=== PATIENT | male | born 1985 | race Two or more races ===

== ENCOUNTER 2018-04-22 10:35 | Emergency (ER) | payer MEDICAID ==
[~2018-04-22] VITALS: Ht 167.6 cm; Wt 66.7 kg
[~2018-04-22 10:35] MED LIST: IBUPROFEN600 MG PO; NORCO 5-325 TA1 EACH PO; ROBAXIN-750750 MG PO
[2018-04-22] MEDS ORDERED: TERBINAFINE HC250 MG PO (10:49)
[2018-04-22] MEDS ORDERED: AMITRIPTYLINE100 MG ORAL (10:49)
[2018-04-22] MEDS ORDERED: JANUVIA25 MG ORAL (10:49)
[2018-04-22] MEDS ORDERED: AMOXICILLIN500 MG ORAL (11:19)
[2018-04-22] MEDS ORDERED: CORTISPORIN EAR10 ML OTIC (11:19)
[2018-04-22 11:25] VITALS: BP 121/81
--- NOTE | 2018-04-22 11:26 | NUR ---
ED Nurse Note: pt. was examed, treated and cleared for D/C home by ER provider. PT. received D/C instructions with prescriptions, verbalized understanding and left ER with steady gait and all personal belongings , ID bend removed.
[2018-04-22 11:27] VITALS: BP 121/81
--- NOTE | 2018-04-22 11:42 | Emergency Room Report ---
History of Present Illness General Chief Complaint: Earache Source: Patient Present Illness HPI Patient presents with complaints of pain to the left ear He felt some increased pressure discomfort 2 weeks ago he had some swelling to the lower parotid region which has improved significantly Denies any neck pain or photophobia denies any fevers He did have some irritation to the canal as well Denies any fall or trauma He did report small tinge of blood from the left ear earlier however does report manipulation of the area with earplugs and also a Q-tip Allergies: Coded Allergies: No Known Allergies (Unverified , 04/22/18) Patient History Past Medical History: see triage record Pertinent Family History: none Reviewed Nursing Documentation: PMH: Agreed; PSxH: Agreed Nursing Documentation-PMH Past Medical History: No History, Except For Review of Systems All Other Systems: negative except mentioned in HPI Physical Exam Vital Signs Date Time Temp Pulse Resp B/P (MAP) Pulse Ox O2 Delivery O2 Flow Rate FiO2 04/22/18 10:44 98.2 99 16 120/82 97 Room Air Sp02 EP Interpretation: reviewed, normal General Appearance: well appearing, no apparent distress Head: normocephalic, atraumatic Eyes: bilateral eye PERRL, bilateral eye EOMI ENT: other - Canal on the left side is mildly irritated tympanic membrane is bulging, the parotid gland in the left side appears mildly irritated as well Neck: supple Respiratory: lungs clear Cardiovascular #1: regular rate, rhythm, no edema Gastrointestinal: non tender, soft Musculoskeletal: normal inspection Neurologic: alert, oriented x3 Skin: other - As above Lymphatic: no adenopathy Medical Decision Making Diagnostic Impression: Primary Impression: otitis media Additional Impression: otitis externa ER Course Patient's exam is consistent with otitis media and externa He is placed on medications appropriately And requires close outpatient follow-up Last Vital Signs Date Time Temp Pulse Resp B/P (MAP) Pulse Ox O2 Delivery O2 Flow Rate FiO2 04/22/18 11:27 98.2 94 16 121/81 97 Room Air Status: unchanged Disposition: HOME, SELF-CARE Condition: Stable Scripts Amoxicillin* (AMOXIL*) 500 Mg Capsule 500 MG ORAL THREE TIMES A DAY, #21 CAP Prov: Nazario Cassidy DO 04/22/18 Neomycin/Polymyxin B Sulf/Hc* (CORTISPORIN EAR SOLUTION*) 10 Ml Solution 2 DROP OTIC FOUR TIMES A DAY for 5 Days, #1 EA Instill in affected ear as directed for 7 days Prov: Nazario Cassidy DO 04/22/18 Referrals: NON PHYSICIAN (PCP) Patient Instructions: Otitis Externa, [id number], Otitis Media, Adult Additional Instructions: Patient is provided with the discharge instructions notified to follow up with primary doctor in the next 2-3 days otherwise return to the er with any worsening symptoms. Please note that this report is being documented using [employer] technology. This can lead to erroneous entry secondary to incorrect interpretation by the dictating instrument. Nazario Cassidy DO Apr 22, 2018 11:42
== END 2018-04-22 11:32 | disposition home or self-care (01) ==
LOC: EMR 11:00
DX: H66.92 Otitis media, unspecified, left ear (principal); H60.92 Unspecified otitis externa, left ear
CPT/HCPCS: 99283

== ENCOUNTER 2018-06-11 09:57 | Emergency (ER) | payer MEDICAID ==
[~2018-06-11] VITALS: Ht 167.6 cm; Wt 70.3 kg
[~2018-06-11 09:57] MED LIST changes: +AMITRIPTYLINE100 MG ORAL; +AMOXICILLIN500 MG ORAL; +CORTISPORIN EAR10 ML OTIC; +JANUVIA25 MG ORAL; +TERBINAFINE HC250 MG PO
[2018-06-11 10:07] VITALS: BP 106/72
[2018-06-11] MEDS ORDERED: GENVOYA TABLET1 EACH PO (10:11)
--- NOTE | 2018-06-11 10:36 | Emergency Room Report ---
History of Present Illness General Chief Complaint: Flu Like Symptoms Source: Patient Present Illness HPI Patient presents with complaints of sinus pressure and nasal congestion ongoing for the past 10 days Denies any sore throat he has some mild pain to the forehead region Patient also has a mild dry cough denies any chest pain or shortness of breath denies any vomiting or diarrhea Denies any abdominal pain denies any recent travel or pleurisy Allergies: Coded Allergies: No Known Allergies (Unverified , 06/11/18) Patient History Past Medical History: see triage record Pertinent Family History: none Reviewed Nursing Documentation: PMH: Agreed; PSxH: Agreed Nursing Documentation-PM Past Medical History: No History, Except For Review of Systems All Other Systems: negative except mentioned in HPI Physical Exam Vital Signs Date Time Temp Pulse Resp B/P (MAP) Pulse Ox O2 Delivery O2 Flow Rate FiO2 06/11/18 10:07 97.9 16 106/72 100 Room Air 06/11/18 10:07 81 Sp02 EP Interpretation: reviewed, normal General Appearance: well appearing, no apparent distress Head: normocephalic, atraumatic Eyes: bilateral eye PERRL, bilateral eye EOMI ENT: hearing grossly normal, normal pharynx, TMs + canals normal, uvula midline , other - Some nasal congestion Neck: full range of motion, supple, no meningismus, no bony tend Respiratory: lungs clear, normal breath sounds, no rhonchi, no respiratory distress, no retraction, no accessory muscle use Cardiovascular #1: normal peripheral pulses, regular rate, rhythm, no edema, no gallop, no JVD, no murmur Gastrointestinal: normal bowel sounds, non tender, soft, no mass, no organomegaly, non-distended, no guarding, no hernia, no pulsatile mass, no rebound Genitourinary: no CVA tenderness Musculoskeletal: normal inspection Neurologic: oriented x3, responsive, billing checker III-XII nml as tested, motor strength/ tone normal, sensory intact Psychiatric: mood/affect normal Skin: normal color, no rash, warm/dry, palpation normal Lymphatic: normal inspection, no adenopathy Medical Decision Making Diagnostic Impression: Primary Impression: Sinusitis Additional Impression: URI (upper respiratory infection) ER Course Differentials including but not limited to sinusitis, pneumonia, URI considered patient has findings and clinical history consistent with Sinusitis does not meet criteria for antibiotics at this time We will have initial conservative outpatient trial And will return with any changes Last Vital Signs Date Time Temp Pulse Resp B/P (MAP) Pulse Ox O2 Delivery O2 Flow Rate FiO2 06/11/18 10:13 81 16 Room Air 06/11/18 10:07 97.9 106/72 100 Status: unchanged Disposition: HOME, SELF-CARE Condition: Stable Additional Instructions: Patient is provided with the discharge instructions notified to follow up with primary doctor in the next 2-3 days otherwise return to the er with any worsening symptoms. Please note that this report is being documented using [employer] technology. This can lead to erroneous entry secondary to incorrect interpretation by the dictating technology Nazario Cassidy DO Jun 11, 2018 10:36
[2018-06-11] MEDS ORDERED: PSEUDOEPHEDRINE60 MG PO (10:37)
[2018-06-11 10:55] VITALS: BP 110/80
--- NOTE | 2018-06-11 10:55 | NUR ---
ED Nurse Note: Pt was seen due to coughing and flu like symptoms. Pt cleared by Health Care Provider for discharge. DC instructions/prescription was given and explained to the pt and verbalized understanding of teachings. All medical devices such as ID band removed. Pt is AAO x4, ambulatory and left with all personal belongings.
== END 2018-06-11 10:55 | disposition home or self-care (01) ==
LOC: EMR 10:48
DX: J32.9 Chronic sinusitis, unspecified (principal); J06.9 Acute upper respiratory infection, unspecified
CPT/HCPCS: 99281

== ENCOUNTER 2019-03-26 18:39 | Emergency (ER) | payer MEDICAID ==
[~2019-03-26] VITALS: Ht 167.6 cm; Wt 66.7 kg
[~2019-03-26 18:39] MED LIST changes: +GENVOYA TABLET1 EACH PO; +PSEUDOEPHEDRINE60 MG PO
[2019-03-26 19:06] VITALS: BP 118/74
[2019-03-26] MEDS ORDERED: RANITIDINE HCL150 MG ORAL (19:30)
[2019-03-26] MEDS ORDERED: ONDANSETRON ODT4 MG BC (19:30)
[2019-03-26 19:36] VITALS: BP 118/74
--- NOTE | 2019-03-26 22:02 | Emergency Room Report ---
History of Present Illness General Chief Complaint: Nausea, Vomiting, and Diarrhea Source: Patient Present Illness HPI 33-year-old male presents ED for evaluation. Complaining of nausea and vomiting. States he is had 3 episodes of vomiting the last few hours. Started shortly after he ate lunch. Denies any nausea or vomiting at this time. Denies any abdominal pain. Denies any diarrhea. Could be a reaction to a new medication he was prescribed for alcohol withdrawal. Does not know the name of the medication. No other aggravating relieving factors. Denies any other associated symptoms Allergies: Uncoded Allergies: AZITHROMIACIN (Allergy, Unknown, 03/26/19) Patient History Past Medical History: none Past Surgical History: none Pertinent Family History: none Social History: Denies: smoking, alcohol use, drug use Immunizations: UTD Reviewed Nursing Documentation: PMH: Agreed; PSxH: Agreed Nursing Documentation-PMH Past Medical History: No History, Except For Review of Systems All Other Systems: negative except mentioned in HPI Physical Exam Vital Signs Date Time Temp Pulse Resp B/P (MAP) Pulse Ox O2 Delivery O2 Flow Rate FiO2 03/26/19 18:58 98.4 89 20 118/74 (89) 97 Room Air Sp02 EP Interpretation: reviewed, normal General Appearance: no apparent distress, alert, GCS 15, non-toxic Head: normocephalic Eyes: bilateral eye normal inspection, bilateral eye PERRL ENT: normal ENT inspection Neck: normal inspection Respiratory: chest non-tender, lungs clear, normal breath sounds, speaking full sentences Cardiovascular #1: regular rate, rhythm, no edema Gastrointestinal: normal bowel sounds, non tender, soft, non-distended, no guarding, no rebound Rectal: deferred Genitourinary: no CVA tenderness Musculoskeletal: normal inspection Neurologic: alert, motor strength/tone normal, oriented x3, sensory intact, responsive, speech normal Psychiatric: normal inspection Skin: no rash Lymphatic: normal inspection Medical Decision Making Diagnostic Impression: Primary Impression: Gastritis Qualified Codes: K29.00 - Acute gastritis without bleeding ER Course Hospital Course 33 yo M presents to ED with vomiting. differential diagnosis: gastritis, SBO, cholecystits Clinical course Patient placed on stretcher. 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 After initial history physical exam reveals male in no acute distress. Abdomen soft. No guarding or rebound. Vital stable. discussed findings with patient. I do not believe patient would require labs or IV access. Patient agrees. Given ODT Zofran and Pepcid here. Safe for discharge for close outpatient follow-up. States he has a PMD I feel this is a highly complex case requiring extensive working including EKG/ Rhythm strip, Xray/CT/US, Blood/urine lab work, repeat exams while in ED, and administration of strong opiates/narcotics for pain control, admission to hospital or close patient follow up. Diagnosis - gastritis Stable and discharged to home with prescriptions for Zantac, zofran. Followup with PMD. Return to ED if symptoms recur or worsen Last Vital Signs Date Time Temp Pulse Resp B/P (MAP) Pulse Ox O2 Delivery O2 Flow Rate FiO2 03/26/19 19:36 98.4 89 20 118/74 97 Room Air Status: improved Disposition: HOME, SELF-CARE Condition: Stable Scripts Ranitidine Hcl* (ZANTAC*) 150 Mg Tablet 150 MG ORAL TWICE A DAY, #30 TAB Prov: Robert Remy MD 03/26/19 Ondansetron Odt* (ZOFRAN ODT*) 4 Mg Tab.rapdis 4 MG BC EVERY 6 HOURS PRN for Nausea & Vomiting, #10 TAB 0 Refills Prov: Robert Remy MD 03/26/19 Referrals: NON PHYSICIAN (PCP) Raul Gar[facility] Patient Instructions: Gastritis, Adult, [id number] Robert Remy MD Mar 26, 2019 22:02
== END 2019-03-26 19:36 | disposition home or self-care (01) ==
LOC: EMR 19:24
DX: K29.00 Acute gastritis without bleeding (principal); Z88.8 Allergy status to other drugs, medicaments and biological substances
CPT/HCPCS: 99283

== ENCOUNTER 2019-04-27 14:50 | Emergency (ER) | payer MEDICAID ==
[~2019-04-27] VITALS: Ht 167.6 cm; Wt 74.8 kg
[~2019-04-27 14:50] MED LIST changes: +ONDANSETRON ODT4 MG BC; +RANITIDINE HCL150 MG ORAL
[2019-04-27 15:22] VITALS: BP 118/83
[2019-04-27 15:27] VITALS: BP 118/83
--- NOTE | 2019-04-27 15:27 | NUR ---
ED Nurse Note: Patient arrived to ED by car from home c/o possible allergic reaction. Patient ate a burger and noticed the right side of his face started swelling. No shortness of breath, nausea, vomiting, or diarrhea. Patient AxO x 4, VSS. No s/s of acute distress. Bed in lowest position.
[2019-04-27] MEDS ORDERED: Ketorolac 30mg Inj IM ONE (15:45)
[2019-04-27] MEDS ORDERED: Unasyn 3gm Inj IM ONE (15:45)
[2019-04-27] MEDS ORDERED: Clindamycin 150mg cap ORAL SCH (15:45)
[2019-04-27] MEDS ORDERED: Omnipaque-300 100ml vial INJ ONE (16:15)
--- NOTE | 2019-04-27 16:21 | Emergency Room Report ---
History of Present Illness General Chief Complaint: Allergic Reaction Source: Patient Present Illness HPI Disclaimer: Please note that this report is being documented using [employer] technology. This can lead to erroneous entry secondary to incorrect interpretation by the dictating instrument. HPI: 34-year-old male history of HIV treated with retroviral undetectable viral load presents for evaluation of facial swelling. Awoke in his usual state of health. He was eating lunch when he noticed swelling over the preauricular area on the left side of his face. Noted a pressure and fullness but denied significant pain. Denied trismus, no swelling of the throat, no difficulty tolerating secretions, no shortness of breath, no stridor. Denies any recent fever, chills. Denies any changes in hearing or vertigo. He did pop a pimple in the external auditory canal yesterday. There was no significant bleeding or swelling in the ear. Denies swelling in the neck. Denies chest pain, abdominal pain, nausea, vomiting, fever, chills. 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 Occasional tobacco use Allergies: Uncoded Allergies: AZITHROMIACIN (Allergy, Unknown, 03/26/19) Nursing Documentation-PMH Past Medical History: No History, Except For Review of Systems All Other Systems: negative except mentioned in HPI Physical Exam Vital Signs Date Time Temp Pulse Resp B/P (MAP) Pulse Ox O2 Delivery O2 Flow Rate FiO2 04/27/19 15:22 98.2 18 118/83 95 Room Air 04/27/19 15:22 103 General: Awake and alert, no acute distress, anxious appearing HEENT: NC/AT. EOMI. tympanic membranes are pearly hudson, nonbulging, no effusion , clear landmarks. External auditory canals unremarkable. There is a soft tissue swelling in the preauricular area on the left side of the face. Nontender. Approximately 6 x 6 cm. No overlying skin changes. No warmth or erythema. Cardiovascular: RRR. S1 and S2 normal. No murmur appreciated Resp: Normal work of breathing. Skin: Intact. No abrasions, laceration or rash over the exposed skin MSK: Normal tone and bulk. Moving all extremities. No obvious deformity. Neuro: Awake and alert. Mentating appropriately. Medical Decision Making Diagnostic Impression: Primary Impression: Parotitis ER Course Is a 34-year-old male presenting for evaluation of left-sided facial swelling. Differential includes but is not limited to this, sialolithiasis, facial abscess , allergic reaction. Patient already took 50 mg Benadryl prior to her arrival. He has no pain and states the mass appears to be getting better. No trismus, no respiratory compromise, no acute distress otherwise. Will obtain a CT scan of the face with IV contrast. Screening labs ordered. Will treat with Unasyn preemptively for possible abscess. Laboratory Tests Test 04/27/19 16:45 White Blood Count 5.5 K/UL (4.8-10.8) Red Blood Count 5.13 M/UL (4.70-6.10) Hemoglobin 15.1 G/DL (14.2-18.0) Hematocrit 43.0 % (42.0-52.0) Mean Corpuscular Volume 84 FL (80-99) Mean Corpuscular Hemoglobin 29.5 PG (27.0-31.0) Mean Corpuscular Hemoglobin Concent 35.1 G/DL (32.0-36.0) Red Cell Distribution Width 9.9 % (11.6-14.8) L Platelet Count 270 K/UL (150-450) Mean Platelet Volume 6.9 FL (6.5-10.1) Neutrophils (%) (Auto) 65.1 % (45.0-75.0) Lymphocytes (%) (Auto) 26.5 % (20.0-45.0) Monocytes (%) (Auto) 5.1 % (1.0-10.0) Eosinophils (%) (Auto) 2.7 % (0.0-3.0) Basophils (%) (Auto) 0.7 % (0.0-2.0) Sodium Level 142 MMOL/L (136-145) Potassium Level 3.9 MMOL/L (3.5-5.1) Chloride Level 106 MMOL/L (98-107) Carbon Dioxide Level 29 MMOL/L (21-32) Anion Gap 7 mmol/L (5-15) Blood Urea Nitrogen 17 mg/dL (7-18) Creatinine 0.8 MG/DL (0.55-1.30) Estimate Glomerular Filtration Rate > 60 mL/min (>60) Glucose Level 115 MG/DL (74-106) H Calcium Level 8.7 MG/DL (8.5-10.1) CT/MRI/US Diagnostic Results CT/MRI/US Diagnostic Results : Impression Preliminary Findings Only See Final Report For Complete Findings CT MAXILLOFACIAL: Soft tissue swelling along the left face without underlying abscess. Possibly infectious process versus parotiditis given mildly enlarged left parotid gland compared to the right (which also may be reactive). No significant odontogenic disease. Radiologist: Ирина Arceo MD Study ready at 19:00 and initial results transmitted at 19:23 Reevaluation Time: 19:32 Last Vital Signs Date Time Temp Pulse Resp B/P (MAP) Pulse Ox O2 Delivery O2 Flow Rate FiO2 04/27/19 15:39 100 18 Room Air 04/27/19 15:27 98.2 118/83 95 Reevaluation Impression Labs unremarkable. CT scan shows soft tissue swelling on the left side of the face. Possible parotitis and the patient was already given a dose of Unasyn in the emergency department. He will be discharged on 10 days of Augmentin and follow-up with his PMD. Also may be sialoadenitis and he was encouraged to massage the parotid, use hard candies, citrus fruits to encourage salivation and clearance. He is complaining of dry mouth on the left side. Patient be followed up closely by his PMD. A copy of the his preliminary CT reports have included in discharge paperwork. We discussed reasons to return to the emergency department. He understands and agree with this treatment plan. Disposition: HOME, SELF-CARE Condition: Stable Scripts Amoxicillin/Potassium Clav 875-125* (AUGMENTIN 875-125 TABLET*) 1 Each Tablet 1 TAB ORAL TWICE A DAY for 10 Days, #20 TAB Prov: Landen Huitron MD 04/27/19 Landen Huitron MD Apr 27, 2019 16:21
--- NOTE | 2019-04-27 16:50 | NUR ---
ED Nurse Note: 20 g IV started in R AC, blood sent to lab.
[2019-04-27 17:18] LABS: BASOPHILS % (AUTO) 0.7 % (0.0-2.0); EOSINOPHILS % (AUTO) 2.7 % (0.0-3.0); HEMOGLOBIN 15.1 G/DL (14.2-18.0); LYMPHOCYTES % (AUTO) 26.5 % (20.0-45.0); MEAN CORPUSCULAR VOLUME 84 FL (80-99); MONOCYTES % (AUTO) 5.1 % (1.0-10.0); NEUTROPHILS % (AUTO) 65.1 % (45.0-75.0); PLATELET COUNT 270 K/UL (150-450); RED BLOOD COUNT 5.13 M/UL (4.70-6.10); RED CELL DISTRIBUTION WIDTH 9.9 % (11.6-14.8); WHITE BLOOD COUNT 5.5 K/UL (4.8-10.8)
[2019-04-27 17:30] LABS: ANION GAP 7 mmol/L (5-15); BLOOD UREA NITROGEN 17 mg/dL (7-18); CALCIUM 8.7 MG/DL (8.5-10.1); CARBON DIOXIDE 29 MMOL/L (21-32); CHLORIDE 106 MMOL/L (98-107); CREATININE 0.8 MG/DL (0.55-1.30); POTASSIUM 3.9 MMOL/L (3.5-5.1); SODIUM 142 MMOL/L (136-145)
--- NOTE | 2019-04-27 19:24 | Diagnostic Imaging Report ---
Indication: Facial pain and swelling Technique: IV administration nonionic contrast. Spiral acquisitions obtained through the Multiplanar reconstructions were generated. Total dose length product 589 mGycm. CTDIvol(s) 25 mGy. Radiation dose was minimized using automated exposure control Comparison: none Findings: There is edema of the subcutaneous fat in the left malar region. There is enlargement of the bilateral parotid glands, particularly the left and particularly involving the superficial lobes. However, attenuation of the parotid glands is unremarkable. The bilateral submandibular glands appear unremarkable. No evidence of parotid ductal calculi or ductal dilatation. No contained or rim-enhancing fluid collections to suggest abscess are demonstrated. Prominent but not frankly enlarged cervical nodes are noted bilaterally. The left maxillary sinus demonstrates a mucous retention cyst. The sinuses are otherwise clear. The mastoids are clear. The dentition is intact. The orbits are unremarkable. The bones are intact. Impression: Asymmetric left greater than right enlargement of the parotid glands. Overlying soft tissue edema on the left. Findings may indicate peritonitis. Correlate with clinical findings No evidence of abscess No other significant abnormality Incidental finding left maxillary sinus mucous retention cyst This agrees with the preliminary interpretation provided overnight by [facility] teleradiology service. The CT scanner at [facility] is accredited by the [employer] and the scans are performed using protocols designed to limit radiation exposure to as low as reasonably achievable to attain images of sufficient resolution adequate for diagnostic evaluation.
--- NOTE | 2019-04-27 19:30 | NUR ---
ED Nurse Note: received patient from sung joya. patient sitting in ft chair with no acute distress. ao4. aware of pending discharge; waiting for dc paperwork.
--- NOTE | 2019-04-27 19:30 | NUR ---
HAND-OFF: Report given to Bradford Rodriguez RN.
[2019-04-27] MEDS ORDERED: AUGMENTIN 875-1 EAC1 ORAL (19:33)
[2019-04-27 19:45] VITALS: BP 118/83
--- NOTE | 2019-04-27 19:45 | NUR ---
ER DISCHARGE NOTE: Patient is cleared to be discharged per ERMD, pt is aox4, on room air, with stable vital signs. pt was given dc and prescription instructions, pt was able to verbalize understanding, pt id band and iv site removed without complications. pt is able to ambulate with steady gait. pt took all belongings.
== END 2019-04-27 19:45 | disposition home or self-care (01) ==
LOC: EMR 16:05
DX: K11.20 Sialoadenitis, unspecified (principal); B20 Human immunodeficiency virus [HIV] disease; Z88.8 Allergy status to other drugs, medicaments and biological substances
CPT/HCPCS: 36415; 70487; 80048; 85025; 96372; J0295; J1885; Q9967; Z7502; 99284